=== PATIENT | female | born 1995 | race Caucasian/White ===

== ENCOUNTER 2022-11-27 16:41 | Emergency (ER) | payer MEDICAID ==
[~2022-11-27] VITALS: Ht 167.6 cm; Wt 79.4 kg
--- NOTE | 2022-11-27 16:45 | NUR ---
ANDRAE [id number] and for evaluation of erratic behavior. Patient was reportedly running on [place] Pt denies any SI/HI on arrival. Pt to room 3, at bedside for MSE.
--- NOTE | 2022-11-27 17:00 | NUR ---
Urine and COVID specimens collected and sent to lab. Blood specimens drawn by [employer] [employer] [facility].
[2022-11-27 17:17] LABS: HEMATOCRIT 37.8 % (31.2-41.9); MEAN CORPUSCULAR HEMOGLOBIN 31.1 uug (24.7-32.8); MEAN CORPUSCULAR VOLUME 92.7 fL (75.5-95.3); PLATELET COUNT (AUTO) 350 K/uL (179-408)
[2022-11-27 17:20] LABS: ALANINE AMINOTRANSFERASE 27 U/L (14-59); ALKALINE PHOSPHATASE 87 U/L (50-136); ASPARTATE AMINOTRANSFERASE 22 U/L (15-37); BILIRUBIN,DIRECT 0.2 mg/dL (0.0-0.2); BILIRUBIN,TOTAL 0.6 mg/dL (0.2-1.0); CARBON DIOXIDE 23 mmol/L (21-32); CHLORIDE 100 mmol/L (98-107); CREATININE 0.9 mg/dL (0.6-1.3); GLUCOSE 85 mg/dL (74-106); POTASSIUM 3.3 mmol/L (3.5-5.1); TOTAL PROTEIN, SERUM 8.2 g/dL (6.4-8.2); UREA NITROGEN, BLOOD 7 mg/dL (7-18)
[2022-11-27 17:20] LABS: *BILIRUBIN,URIN NEGATIVE (NEGATIVE); *BLOOD, URINE NEGATIVE (NEGATIVE); *CLARITY,URINE CLEAR (CLEAR); *COLOR,URINE YELLOW (YELLOW); *KETONES,URINE 3+ (NEGATIVE); *UROBILINOGEN,URINE 0.2 E.U./dl (NORMAL); LEUKOCYTE ESTERASE ,URINE NEGATIVE (NEGATIVE); NITRITE, URINE NEGATIVE (NEGATIVE); PH,URINE 6.5 (5.0-8.0); UGLUCOSE NEGATIVE (NEGATIVE)
[2022-11-27 17:21] LABS: ACETAMINOPHEN < 10.0 ug/mL (10-30)
[2022-11-27 17:22] LABS: ETHANOL < 3 MG/DL (0-0)
[2022-11-27] MEDS ORDERED: POTASSIUM CHLORIDE 20 MEQ TAB.PRT.SR PO ONE (17:30)
[2022-11-27] MEDS ORDERED: POTASSIUM CHLORIDE 20 MEQ TAB.PRT.SR ONE (17:34)
[2022-11-27 17:37] LABS: BACTERIA,URINE FEW /HPF (NONE SEEN); RBC,URINE NONE SEEN /HPF (0-3); SQUAMOUS EPITHELIAL CELL,UR FEW /HPF (NONE SEEN); WBC,URINE NONE SEEN /HPF (0-3)
[2022-11-27 17:39] LABS: *AMPHETAMINE, URINE NEGATIVE (NEGATIVE); *CANNABINOID, URINE POSITIVE (NEGATIVE); *COCCAINE, URINE NEGATIVE (NEGATIVE); *OPIATE, URINE NEGATIVE (NEGATIVE); *PHENCYCLIDINE SCREEN,URINE NEGATIVE (NEGATIVE)
--- NOTE | 2022-11-27 17:45 | NUR ---
Called MOERO Alcaraz for psych eval, left urgent message.
--- NOTE | 2022-11-27 17:53 | NUR ---
Spoke with Lissa, stated she will be in to evaluate the patient.
--- NOTE | 2022-11-27 19:14 | NUR ---
PATIENT AWAKE RESTING IN BED, NO VOICED C/O PAIN OR DISCOMFORT AT THIS TIME. INFORMED OF PLAN OF CARE, AWARE WILL BE GETTING EVALUATION BY PET TEAM. NO S/S OF ANY DISTRESS NOTED, WILL CONTINUE TO MONITOR.
[2022-11-27] MEDS ORDERED: LORAZEPAM 0.5 MG TABLET PO ONE ×2 (19:45→20:45)
[2022-11-27] MEDS ORDERED: OLANZAPINE 5 MG TABLET PO ONE (19:45)
[2022-11-27] MEDS ORDERED: LORAZEPAM 1 MG TABLET ONE ×2 (19:49→20:38)
[2022-11-27] MEDS ORDERED: OLANZAPINE 5 MG TABLET ONE (19:50)
--- NOTE | 2022-11-27 19:55 | NUR ---
PATIENT BEING EVALUATED AT THIS TIME AND WAS MEDICATED PER ORDER.
--- NOTE | 2022-11-27 21:39 | NUR ---
patient resting at this time, no voiced c/o pain or discomfort. Will continue to monitor. side rails remain up.
--- NOTE | 2022-11-27 22:40 | NUR ---
Patient resting in bed easy to arouse, no voiced c/o at this time. No change in primary assessment.
--- NOTE | 2022-11-28 01:32 | NUR ---
Patient continues to rest witout c/o. No change in primary assessment. will continue to monitor.
[2022-11-28] MEDS ORDERED: ALPR1TAB2 PO (02:46)
[2022-11-28] MEDS ORDERED: OLAN5TAB3 PO (02:46)
--- NOTE | 2022-11-28 04:14 | NUR ---
PATIENT CONTINUES TO SLEEP, REMAINS EASY TO AROUSE WITH NO VOICED C/O PAIN OR DISCOMFORT, MADE AWARE SHE WILL BE EVALUATED THIS MORNING. NO S/S OF ANY DISTRESS NOTED.
--- NOTE | 2022-11-28 06:20 | NUR ---
PATIENT EVALUATED BY CRISIS TEAM, OKAY FOR DISCHARGE, PATIENT NEEDS CLOTHING AND RIDE HOME. PATIENT IS STABLE FOR DISCHARGE HOME.
--- NOTE | 2022-11-28 06:27 | NUR ---
PATIENT GIVEN CLOTHING AT THIS TIME. WILL HAVE BREAKFAST BEFORE LEAVING.
--- NOTE | 2022-11-28 08:33 | NUR ---
0722am: 1ST CONTACT WITH PATIENT She is asleep, easily arousable, resting comfortably on gurney, for discharge after eating breakfast tray per MD order. 0824am: Patient is eating breakfast. Patient said that she will call her mother to pick her up. Patient is unable to recall where she left her car. TAP card was offered.
--- NOTE | 2022-11-28 08:40 | NUR ---
Patient discharged to home in stable condition. Written and verbal after care instructions given to patient. Patient verbalized understanding and compliance of instructions. Stressed follow up with her psychiatrist or return to ER for worsening s/s.
== END 2022-11-28 08:53 | disposition home or self-care (01) ==
LOC: ER 16:41
DX: R46.2 Strange and inexplicable behavior (principal); E87.6 Hypokalemia; F12.90 Cannabis use, unspecified, uncomplicated; Z20.822 Contact with and (suspected) exposure to COVID-19
CPT/HCPCS: 36415; 85025; A4663; G0480